=== PATIENT | male | born 1950 | race Caucasian/White ===

== ENCOUNTER 2018-03-20 13:04 | Emergency (ER) | payer OTHER ==
--- NOTE | 2018-03-20 13:44 | EDPHY ---
H & P <Ben Cháevz - Last Filed: 03/20/18 14:02> Stated Complaint: ? ankle swelling ? septic ankle - Personal History Current Tetanus/Diphtheria Vaccine: Yes Current Tetanus Diphtheria and Acellular Pertussis (TDAP): Yes Tetanus Vaccine Date: within last 10 years - Medical/Surgical History Hx Asthma: Yes Hx Chronic Respiratory Disease: No Hx Diabetes: Yes Hx Cardiac Disease: No Hx Renal Disease: No Hx Cirrhosis: No Hx Alcoholism: No Hx HIV/AIDS: No Hx Splenectomy or Spleen Trauma: No Other PMH: Asthma, DM, RA, right hip replcement (01/02), left hip replacement ( 25 yrs ago) - Social History Smoking Status: Current some day smoker <Joelle Klein - Last Filed: 03/20/18 15:48> Time Seen by Provider: 03/20/18 13:25 HPI/ROS: CHIEF COMPLAINT: Erythema to the right medial ankle "I might have an infected joint" HISTORY OF PRESENT ILLNESS: 67-year-old male history of diabetes, history of rheumatoid arthritis and psoriasis, on immunosuppressant medication, complaining of 1 week of progressive erythema to the right medial ankle. Today he went to urgent care, had a negative x-ray and was referred to the ER for evaluation of possible septic arthritis of the ankle . Atraumatic. Able to bear weight. No flu-like symptoms No fever no chills no nausea or vomiting. PRIMARY CARE PROVIDER: REVIEW OF SYSTEMS: 10 systems reviewed and negative with the exception of the elements mentioned in the history of present illness PAST MEDICAL & SURGICAL HISTORY: Psoriasis. Diabetes. Rheumatoid arthritis. Immune suppressant medication. SOCIAL HISTORY: Nonsmoker PHYSICAL EXAM (Prior to examination, patient consented to physical exam, hands were washed and my usual and customary physical exam procedures followed) 1) GENERAL: Well-developed, well-nourished, alert and oriented. Appears to be in no acute distress. Observed ambulating stable steady gait without assistance. 2) HEAD: Normocephalic, atraumatic 3) HEENT: Pupils equal, round, reactive to light bilaterally. Sclera anicteric. 4) NECK: Full range of motion, no meningeal signs. 5) LUNGS: Clear auscultation bilaterally, no wheezes, no rhonchi, no retractions. 6) HEART: Regular rate and rhythm, no murmur, no heave, no gallop. 7) ABDOMEN: No guarding, no rebound, no focal tenderness, negative McBurney's, negative Gatica's, negative Rovsing's, negative peritoneal sign, 8) MUSCULOSKELETAL: Right lower extremity: Psoriatic lesions noted. Right medial ankle erythema, induration, increased temperature. No lymphangitic streaking. No crepitus No pain with axial loading or range of motion of the ankle joint. Negative Homans no palpable cord. DP PT pulses present and brisk. Negative Homans no palpable cord. 9) BACK: No CVA tenderness, no midline vertebral tenderness, no fluctuance, no step-off, no obvious trauma, no visual or palpable abnormality. 10) SKIN: No rash, no petechiae. 11) Psychiatric: Patient is oriented X 3, there is no agitation. DIFFERENTIAL DIAGNOSIS: In no particular order include but limited to cellulitis, septic arthritis, crystalline arthritis, DVT (Joelle Klein) Constitutional: Initial Vital Signs Temperature (C) 36.6 C 03/20/18 13:15 Heart Rate 99 03/20/18 13:15 Respiratory Rate 16 03/20/18 13:15 Blood Pressure 147/91 H 03/20/18 13:15 O2 Sat (%) 96 03/20/18 13:15 O2 Delivery Mode Room Air Allergies/Adverse Reactions: No Known Allergies Allergy (Unverified 08/06/14 10:19) Home Medications: Medication Instructions Recorded Aspirin [Silvia Chewable] 81 mg PO DAILY 08/06/14 Atorvastatin Calcium [Lipitor 10 08/06/14 mg (RX)] Glipizide [Glipizide ER] 2.5 mg PO 08/06/14 Leflunomide [Arava 10 mg (RX)] 10 mg PO [id number] 08/06/14 SITAGLIPTIN PHOSPHATE [Januvia 50 50 mg PO DAILY 08/06/14 mg] metFORMIN HCL [Glucophage 1000 mg] 1,000 mg PO BIDMEAL 08/06/14 SIMPONI 03/20/18 Medical Decision Making <Ben Chávez - Last Filed: 03/20/18 14:02> <Joelle Klein - Last Filed: 03/20/18 15:48> - Diagnostics Imaging Results: Imaging Impressions Ankle X-Ray 03/20/18 11:33 Impression: No acute osseous findings. ED Course/Re-evaluation: I reviewed the patient's pre-hospital x-ray which is negative interpreted by staff Radiology. Patient was also seen and examined Dr. Ben Chávez in the ER. Patient is immunosuppressed secondary to medication for psoriasis, rheumatoid arthritis as well as history of diabetes. He has erythema to his right medial ankle which we think less than likely represents septic arthritis the presence of full pain-free range of motion and weight-bearing of the ankle. I have observed him weight-bearing with normal gait. However he is immune suppressed with erythema to the ankle. I have recommended hospital admission for IV antibiotics. Due to prior commitments the patient is adamant that he cannot be admitted to the hospital however after lengthy discussion with the patient he does ultimately agree to dose of IV vancomycin and return to the ER in 12 hrx for re administration of IV antibiotics and re-evaluation. I believe him to have decision-making capacity. (Joelle Klein) Other Provider: I evaluated this patient independently at the request of TRA Sanderson. This patient is an immunocompromised 67 y/o male with history of rheumatoid arthritis, psoriasis. He complains of increasing erythema and swelling to his right ankle over the past 1.5 weeks. This occurred shortly after he felt a "pop " in his ankle. Today, pain is reduced significantly, but the swelling and erythema has continued. He was referred here to the emergency department as his provider had concern for possible septic joint. He is able to walk on the ankle and has appropriate range of motion. No pain, tenderness, or swelling in his calf. He is not febrile. He does not feel systemically ill. On exam, the ankle is erythematous and swollen, consistent with a cellulitis. There are psoriatic skin changes to both lower extremities. Skin sloughing from feet consistent with psoriasis vs. athlete's foot. 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 Discussed IV antibiotics outpatient vs. admission. The patient prefers to avoid admission if possible. The patient is not a candidate for setting up a simple outpatient infusion schedule, he will need repeat evaluation by a physician or PA for close monitoring due to his immunocompromised status. We agreed to proceed with outpatient medication administration: he will return to the emergency department Q12 hours for repeat antibiotics and repeat evaluation by a physician. Plan to administer IV Vancomycin. I stressed the importance of returning on schedule for followup treatment and that he must be seen by a provider, especially given his immunocompromised status. He understands and is comfortable with this plan. (Ben Chávez) - Data Points Laboratory Results: Laboratory Results 03/20/18 14:06 03/20/18 14:06 03/20/18 03/20/18 03/20/18 14:40 14:06 14:06 WBC 8.21 10^3/uL 10^3/uL (3.80-9.50) RBC 4.83 10^6/uL 10^6/uL (4.40-6.38) Hgb 15.2 g/dL g/dL (13.7-17.5) POC Hgb 16.3 gm/dL gm/dL (13.7-17.5) Hct 47.0 % % (40.0-51.0) POC Hct 48 % % (40-51) MCV 97.3 fL fL (81.5-99.8) MCH 31.5 pg pg (27.9-34.1) MCHC 32.3 g/dL L g/dL (32.4-36.7) RDW 13.1 % % (11.5-15.2) Plt Count 256 10^3/uL 10^3/uL (150-400) MPV 9.7 fL fL (8.7-11.7) Neut % (Auto) 60.0 % % (39.3-74.2) Lymph % (Auto) 24.5 % % (15.0-45.0) Ford % (Auto) 11.0 % % (4.5-13.0) Eos % (Auto) 2.7 % % (0.6-7.6) Baso % (Auto) 1.1 % % (0.3-1.7) Nucleat RBC Rel Count 0.0 % % (0.0-0.2) Absolute Neuts (auto) 4.93 10^3/uL 10^3/uL (1.70-6.50) Absolute Lymphs (auto) 2.01 10^3/uL 10^3/uL (1.00-3.00) Absolute Monos (auto) 0.90 10^3/uL H 10^3/uL (0.30-0.80) Absolute Eos (auto) 0.22 10^3/uL 10^3/uL (0.03-0.40) Absolute Basos (auto) 0.09 10^3/uL 10^3/uL (0.02-0.10) Absolute Nucleated RBC 0.00 10^3/uL 10^3/uL (0-0.01) Immature Gran % 0.7 % % (0.0-1.1) Immature Gran # 0.06 10^3/uL 10^3/uL (0.00-0.10) POC Sodium 141 mEq/L mEq/L (135-145) Sodium 136 mEq/L mEq/L (135-145) POC Potassium 4.4 mEq/L mEq/L (3.3-5.0) Potassium 4.5 mEq/L mEq/L (3.5-5.2) POC Chloride 100 mEq/L mEq/L (97-110) Chloride 101 mEq/L mEq/L (97-110) Carbon Dioxide 26 mEq/l mEq/l (22-31) POC Total CO2 Pending Anion Gap 9 mEq/L mEq/L (6-14) POC BUN 26 mg/dL H mg/dL (7-23) BUN 27 mg/dL H mg/dL (7-23) Creatinine 0.9 mg/dL mg/dL (0.7-1.3) POC Creatinine 1.0 mg/dL mg/dL (0.7-1.3) Estimated GFR > 60 Glucose 163 mg/dL H mg/dL (70-100) POC Glucose 169 mg/dL H mg/dL (70-100) Calcium 9.6 mg/dL mg/dL (8.5-10.4) Medications Given: Discontinued Medications Vancomycin/Sodium Chloride (Vancomycin 1 Gm (Premix)) 250 mls @ 250 mls/hr IV EDNOW ONE PRN Reason: Protocol Stop: 03/20/18 14:55 Last Admin: 03/20/18 14:12 Dose: 250 mls Sodium Chloride (Ns) 1,000 mls @ 0 mls/hr IV ONCE ONE PRN Reason: Wide Open Stop: 03/20/18 14:47 Last Admin: 03/20/18 14:50 Dose: 1,000 mls Point of Care Test Results: Chemistry 03/20/18 14:40 POC Sodium 141 mEq/L mEq/L (135-145) POC Potassium 4.4 mEq/L mEq/L (3.3-5.0) POC Chloride 100 mEq/L mEq/L (97-110) POC BUN 26 mg/dL H mg/dL (7-23) POC Creatinine 1.0 mg/dL mg/dL (0.7-1.3) POC Glucose 169 mg/dL H mg/dL (70-100) ISTAT H&H 03/20/18 14:40 POC Hgb 16.3 gm/dL gm/dL (13.7-17.5) POC Hct 48 % % (40-51) Departure <Ben Chávez - Last Filed: 03/20/18 14:02> <Joelle Klein - Last Filed: 03/20/18 15:48> - Departure Disposition: Home, Routine, Self-Care Clinical Impression: Cellulitis of right ankle, Immunosuppression Condition: Good Instructions: Cellulitis (ED) Additional Instructions: Return to the ER if you develop redness, swelling, discharge, warmth to the wound, red streaks going up your leg, or any other symptoms that concern you. Referrals: Return, to the ER in 12 hr for recheck [Other] - 03/21/18 3:00 am Report Scribed for: Ben Chávez Report Scribed by: Ryann Echavarria Date of Report: 03/20/18 Time of Report: 14:02 <Ben Chávez - Last Filed: 03/20/18 14:02>
[2018-03-20] MEDS ORDERED: VANCOMYCIN HCL/NORMAL SALINE 250 ML IV ONE (13:56)
[2018-03-20 14:29] LABS: PLATELET COUNT 256 10^3/uL (150-400)
[2018-03-20] MEDS ORDERED: NS 1,000 ML IV ONE (14:46)
[2018-03-20 15:38] VITALS: BP 136/78
== END 2018-03-20 15:39 | disposition home or self-care (01) ==
LOC: EDSTATUS 13:04
DX: L03.115 Cellulitis of right lower limb (principal); D89.9 Disorder involving the immune mechanism, unspecified
CPT/HCPCS: 73610; 96365; 99284; J3370; 82435-PO; 82565-PO; 82947-PO; 84132-PO; 84295-PO; 84520-PO; 85014-ER

== ENCOUNTER 2018-03-21 02:50 | Observation (INO) | payer OTHER ==
--- NOTE | 2018-03-21 03:59 | EDPHY ---
H & P Stated Complaint: told to come to ED for a Q12 IV infusion per Jeremias Chávez ankle infection Time Seen by Provider: 03/21/18 03:59 HPI/ROS: HPI CHIEF COMPLAINT: "second dose of Antibiotics" HISTORY OF PRESENT ILLNESS: This is a 67-year-old male who was seen earlier yesterday for erythema and swelling to the medial aspect of the right ankle concerning for infection. At that time declined hospital admission, however it was highly recommended the patient be admitted to the hospital, subsequently was given dose of IV vancomycin and returns for a 12 hr recheck and another dose of antibiotics. He arrives back to the emergency room late this evening for his 2nd dose of vancomycin and evaluation and recheck of his ankle. On re-examination is right ankle is erythematous, very warm and tender. He does have full range of motion, patient does report that the redness is worse. But has pain and swelling is not worse. On exam is exquisitely warm and red. He is immunocompromised due to rheumatoid arthritis and on medications. I again had a long discussion with the patient recommend hospital admission for antibiotics. After extensive long discussion with him going over the risk versus benefit of being hospitalize he has finally agreed to be hospitalized. A 2nd dose of IV Vanco will be given to him. Will repeat his blood work. Obtain blood cultures. Admit to the hospitalist service. Past Medical History: Significant past medical history for diabetes, rheumatoid arthritis on immunosuppressants, asthma Past Surgical History: Hip replacements Social History: denies drugs alcohol tobacco. Family History: Noncontributory ROS REVIEW OF SYSTEMS: 10 Systems were reviewed and negative with the exception of the elements mentioned in the history of present illness. Exam Constitutional triage nursing summary reviewed, vital signs reviewed, awake/ alert. Eyes normal conjunctivae and sclera, EOMI, PERRLA. HENT normal inspection, atraumatic, moist mucus membranes, no epistaxis, neck supple/ no meningismus, no raccoon eyes. Respiratory clear to auscultation bilaterally, normal breath sounds, no respiratory distress, no wheezing. Cardiovascular rate normal, regular rhythm, no murmur, no edema, distal pulses normal. Gastrointestinal soft, non-tender, no rebound, no guarding, normal bowel sounds, no distension, no pulsatile mass. Genitourinary no CVA tenderness. Musculoskeletal right lower extremity: Good distal pulse, good cap refill, psoriasis on the lateral aspect of the right foot. Psoriasis on the bottom of the foot with skin scaling. However to the medial aspect of the right ankle over the right medial malleolus extensive erythema and warmth. Some mild edema. Otherwise neurovascular intact with full range of motion good cap refill , no crepitus with movement. No crepitus when I examine his leg. There is some streaking up his right medial leg. no midline vertebral tenderness, full range of motion, no calf swelling, no tenderness of extremities, no meningismus, good pulses, neurovascularly intact. Skin pink, warm, & dry, no rash, skin atraumatic. Neurologic awake, alert and oriented x 3, AAOx3, moves all 4 extremities equally, motor intact, sensory intact, CN II-XII intact, normal cerebellar, normal vision, normal speech. Psychiatric normal mood/affect. Heme/Lymph/Immune no lymphadenopathy. Differential Diagnosis: Includes but is not limited to in a particular order right lower extremity cellulitis, necrotizing fasciitis, septic joint Medical Decision Making: Plan for this patient he has immunocompromise on his RA medications, he has a pretty impressive right lower extremity cellulitis. Plan will be for 2nd dose of vancomycin. Additionally plan for admission the hospital after long discussion with the patient he accepts and agrees. Will obtain blood cultures and basic blood work again. Inflammatory markers. IV Vanco as been ordered. I have consult the hospitalist service Dr. Mead Agrees to admit. Patient also agrees for admission. Re-evaluation: Source: Patient - Personal History Current Tetanus/Diphtheria Vaccine: Yes Current Tetanus Diphtheria and Acellular Pertussis (TDAP): Yes Tetanus Vaccine Date: within last 10 years - Medical/Surgical History Hx Asthma: Yes Hx Chronic Respiratory Disease: No Hx Diabetes: Yes Hx Cardiac Disease: No Hx Renal Disease: No Hx Cirrhosis: No Hx Alcoholism: No Hx HIV/AIDS: No Hx Splenectomy or Spleen Trauma: No Other PMH: Asthma, DM, RA, right hip replcement (01/02), left hip replacement ( 25 yrs ago) - Social History Smoking Status: Current some day smoker Constitutional: Initial Vital Signs Temperature (C) 36.8 C 03/21/18 02:52 Heart Rate 99 03/21/18 02:52 Respiratory Rate 20 03/21/18 02:52 Blood Pressure 153/96 H 03/21/18 02:52 O2 Sat (%) 94 03/21/18 02:52 O2 Delivery Mode Room Air Allergies/Adverse Reactions: No Known Allergies Allergy (Verified 03/21/18 08:33) Home Medications: Medication Instructions Recorded Atorvastatin Calcium [Lipitor 10 10 mg PO DAILY 08/06/14 mg (RX)] Golimumab [SIMPONI] 50 mg SQ Q30D 03/20/18 Aspirin [Aspirin 81mg (*)] 81 mg PO DAILY 03/21/18 Finasteride [Proscar 5 MG (*)] 5 mg PO DAILY 03/21/18 Fluocinonide 0.05% [Lidex 0.05% 1 luis TP BID 03/21/18 Ointment] Leflunomide [Arava 20 mg (*)] 20 mg PO Q2D 03/21/18 Multivitamins [Multivitamin (*)] 1 each PO DAILY 03/21/18 Stowell-3 Fatty Acids [Fish Oil 1000 1,000 mg PO DAILY 03/21/18 mg (*)] Tamsulosin HCl [Flomax 0.4 MG (*)] 0.4 mg PO DAILY 03/21/18 glipiZIDE [Glipizide] 5 mg PO BIDMEAL 03/21/18 metFORMIN HCL [Glucophage 500 mg 1,000 mg PO DAILY 03/21/18 (*)] metFORMIN HCL [Glucophage 500 mg 500 mg PO DAILY18 03/21/18 (*)] sitaGLIPtin PHOSPHATE [Januvia 100 100 mg PO DAILY 03/21/18 MG (*)] Medical Decision Making - Data Points Medications Given: Atorvastatin Calcium (Lipitor) 10 mg PO DAILY [facility] Stop: 09/17/18 08:59 Last Admin: 03/21/18 10:17 Dose: 10 mg Enoxaparin Sodium (Lovenox) 40 mg SC DAILY [facility] Stop: 09/17/18 08:59 Last Admin: 03/21/18 09:44 Dose: 40 mg Finasteride (Proscar) 5 mg PO DAILY [facility] Stop: 09/17/18 08:59 Last Admin: 03/21/18 10:17 Dose: 5 mg Fluocinonide (Lidex 0.05% Ointment) 1 luis TP BID [facility] Stop: 09/17/18 08:59 Last Admin: 03/21/18 19:05 Dose: 1 luis Glipizide (Glucotrol) 5 mg PO BIDMEAL [facility] Stop: 09/17/18 08:44 Last Admin: 03/21/18 19:06 Dose: 5 mg Vancomycin HCl 1 gm/ Sodium (Chloride) 250 mls @ 250 mls/hr IV Q12H [facility] Stop: 04/20/18 17:59 Last Admin: 03/21/18 17:54 Dose: 250 mls Leflunomide (Arava) 20 mg PO Q2D [facility] Stop: 09/17/18 08:59 Last Admin: 03/21/18 10:17 Dose: 20 mg Metformin HCl (Glucophage) 500 mg PO DAILY18 [facility] Stop: 09/17/18 17:59 Last Admin: 03/21/18 17:54 Dose: 500 mg Sitagliptin Phosphate (Januvia) 100 mg PO DAILY [facility] Stop: 09/17/18 08:59 Last Admin: 03/21/18 10:17 Dose: 100 mg Tamsulosin HCl (Flomax) 0.4 mg PO DAILY [facility] Stop: 09/17/18 08:59 Last Admin: 03/21/18 10:17 Dose: 0.4 mg Discontinued Medications Sodium Chloride (Ns) 1,000 mls @ 0 mls/hr IV EDNOW ONE; Wide Open PRN Reason: Protocol Stop: 03/21/18 04:49 Last Admin: 03/21/18 05:17 Dose: 1,000 mls Vancomycin/Sodium Chloride (Vancomycin 1 Gm (Premix)) 250 mls @ 250 mls/hr IV EDNOW ONE PRN Reason: Protocol Stop: 03/21/18 05:48 Last Admin: 03/21/18 05:16 Dose: 250 mls Sodium Chloride (Ns) 1,000 mls @ 0 mls/hr IV ONCE ONE PRN Reason: Wide Open Stop: 03/21/18 06:42 Last Admin: 03/21/18 06:43 Dose: 1,000 mls Miscellaneous Medication (Golimumab [Simponi]) 50 mg SQ Q30D [facility] Stop: 09/17/18 08:44 Last Admin: 03/21/18 09:47 Dose: Not Given Departure - Departure Disposition: [facility] Inpatient Acute Clinical Impression: Cellulitis Qualifiers: Site of cellulitis: extremity Site of cellulitis of extremity: lower extremity Laterality: right Qualified Code(s): L03.115 - Cellulitis of right lower limb Condition: Good
[2018-03-21] MEDS ORDERED: VANCOMYCIN 1 GM/NS 250 ML BAG IV ONE (04:34)
[2018-03-21] MEDS ORDERED: NS 1,000 ML IV ONE ×2 (04:48→06:41)
[2018-03-21] MEDS ORDERED: VANCOMYCIN HCL/NORMAL SALINE 250 ML IV ONE (04:49)
[2018-03-21] MEDS ORDERED: ONDANSETRON DISINTEGRATING 4 MG TAB PO PRN (04:53)
[2018-03-21] MEDS ORDERED: ONDANSETRON 4 MG/2 ML VIAL IVP PRN (04:53)
[2018-03-21] MEDS ORDERED: ACETAMINOPHEN 325 MG TAB PO PRN (04:53)
[2018-03-21 05:09] LABS: PLATELET COUNT 261 10^3/uL (150-400)
--- NOTE | 2018-03-21 05:12 | PDGENHP ---
History and Physical - Chief Complaint Foot redness - History of Present Illness 67 yo M w/ RA, psoriasis, and DM presents with R foot redness. He states this started about 10 days ago and has been progressing. He has a 30 year hx of RA and is on a biologic for immunosuppression. He presented to the ED yesterday, was given a dose of Vancomycin, and discharged home after refusing admission. He presents again this morning with minimal improvement in the redness of his medial R foot. he denies fevers and chills. His laboratory work-up is pending this morning but was reassuring yesterday. His vital signs are currently WNL. Case discussed with ED physician Dr. Hurley; records reviewed and summarized above. History Information - Allergies/Home Medication List Allergies/Adverse Reactions: No Known Allergies Allergy (Unverified 03/21/18 02:51) Home Medications: Aspirin [Silvia Chewable] 81 mg PO DAILY 08/06/14 [Last Taken Unknown] Atorvastatin Calcium [Lipitor 10 mg (RX)] 08/06/14 [Last Taken Unknown] Glipizide [Glipizide ER] 2.5 mg PO 08/06/14 [Last Taken Unknown] Leflunomide [Arava 10 mg (RX)] 10 mg PO [id number] 08/06/14 [Last Taken Unknown] SITAGLIPTIN PHOSPHATE [Januvia 50 mg] 50 mg PO DAILY 08/06/14 [Last Taken Unknown] metFORMIN HCL [Glucophage 1000 mg] 1,000 mg PO BIDMEAL 08/06/14 [Last Taken Unknown] SIMPONI 03/20/18 [Last Taken Unknown] I have personally reviewed and updated: family history, medical history - Past Medical History diabetes type 2 Additional medical history: RA. Psoriasis - Surgical History Additional surgical history: Bilateral THAs - Family History Positive for: diabetes type II, CAD - Social History Smoking Status: Current some day smoker Review of Systems Review of Systems: ROS: 10pt was reviewed & negative except for what was stated in HPI & below Physical Exam Physical Exam: Temp Pulse Resp BP Pulse Ox 36.8 C 99 20 153/96 H 94 03/21/18 02:52 03/21/18 02:52 03/21/18 02:52 03/21/18 02:52 03/21/18 02:52 Constitutional: no apparent distress, not in pain Eyes: PERRL, EOMI Ears, Nose, Mouth, Throat: moist mucous membranes, no oral mucosal ulcers Cardiovascular: regular rate and rhythym, no murmur, rub, or gallop Respiratory: no respiratory distress, clear to auscultation Gastrointestinal: normoactive bowel sounds, soft, non-tender abdomen Skin: warm, no fluctuance, erythema (Medial R foot) Neurologic: AAOx3, CN II-XII Intact Psychiatric: interacting appropriately, not anxious Lab Data & Imaging Review 03/21/18 04:55 03/21/18 04:55 VBG Lactic Acid 2.3 mmol/L (0.7-2.1) H 03/21/18 04:55 Assessment & Plan Assessment: 67 yo M w/ DM, RA, and psoriasis presents with cellulitis. Plan: 1. R foot cellulitis - Presents for about 10 days; progressive but with minimal systemic symptoms at this time. He is immunosuppressed for treatment of RA and psoriasis. - Will continue Vancomycin IV noting he has already received 2 doses in the ED over the last 24 hours 2. RA - Diagnosed about 30 years ago. He has had multiple hip surgeries as a result. 3. Psoriasis - Recent diagnosis, may be contributing to breakdown of skin barrier. 4. NIDDM - On oral agents as an outpatient. - Continue oral agents pending reconciliation Diet - Regular Code - Full Ppx - LMWH Dispo - Admit under observation status
[2018-03-21] MEDS ORDERED: GOLIMUMAB 50 MG SQ SCH ×2 (08:45→14:00)
[2018-03-21] MEDS ORDERED: LEFLUNOMIDE 20 MG TAB PO SCH (09:00)
[2018-03-21] MEDS: ENOXAPARIN 40 MG/0.4 ML SYR SC SCH (09:44)
[2018-03-21] MEDS: glipiZIDE 5 MG TAB PO SCH ×2 (09:44→19:06)
[2018-03-21] MEDS: FLUOCINONIDE 0.05% 15 GM OINTMENT TP SCH ×2 (09:48→19:05)
[2018-03-21] MEDS: ATORVASTATIN CALCIUM 10 MG TAB PO SCH (10:17)
[2018-03-21] MEDS: FINASTERIDE 5 MG TAB PO SCH (10:17)
[2018-03-21] MEDS: TAMSULOSIN HCL 0.4 MG CAP PO SCH (10:17)
--- NOTE | 2018-03-21 16:01 | HOSPPROG ---
Hospitalist Progress Note Assessment/Plan: 67 yo M w/ DM, RA, and psoriasis presents with cellulitis. First encounter, chart reviewed. * R foot, ankle area cellulitis -Presents for about 10 days - on Vancomycin - immunocompromised - spoke w ID and will see him for further recommendations * RA - Diagnosed about 30 years ago. -He has had multiple hip surgeries as a result. * Psoriasis -on both ankles and feet -has been on biologics for this -Humira has not helped * NIDDM - On oral agents as an outpatient. - resumed oral agents *plan: spoke w ID they will see him, resumed his home medications. >30 minutes f /u with Yemi. Subjective: Yemi said the swelling is much improved in his r lower ankle area. Objective: Vital Signs Temp Pulse Resp BP Pulse Ox 36.4 C 74 16 144/84 H 95 03/21/18 13:37 03/21/18 13:37 03/21/18 13:37 03/21/18 13:37 03/21/18 13:37 Laboratory Results 03/21/18 04:55 03/21/18 04:55 03/20/18 03/21/18 03/22/18 05:59 05:59 05:59 Intake Total 1999 Balance 1999 - Physical Exam Constitutional: no apparent distress, appears nourished, not in pain Eyes: PERRL Ears, Nose, Mouth, Throat: hearing normal Respiratory: no respiratory distress Skin: warm, other (singificant psoriasis on both feet, ankles. right ankle area with warmth redness, dry, scaley.) Musculoskeletal: full muscle strength Neurologic: AAOx3 Psychiatric: interacting appropriately, not anxious ICD10 Worksheet Patient Problems: Problems Problem Status Onset Cellulitis Acute
[2018-03-21] MEDS: VANCOMYCIN 1 GM in NS 250 ML IV SCH (17:54)
[2018-03-21] MEDS ORDERED: metFORMIN HCL 500 MG TAB PO SCH (18:00)
--- NOTE | 2018-03-21 19:31 | PDCONSULT ---
Shake Splitter Note: Infectious Diseases Consult Note Impression: 67-year-old man with right ankle cellulitis improving with vancomycin. Absence of abscess or fluctuance makes Staph aureus less likely than Streptococcal organisms. Plan to change to amoxicillin alone and follow in outpatient setting when ready for discharge. No suggestion of opportunistic pathogen while on TNF-alpha blockade. 1. Right medial ankle cellulitis; Improved 2. Psoriasis 3. Rheumatoid arthritis 4. Immunocompromised patient due to RA treatment with golimumab (Simponi) a TNF- alpha inhibitor Plan: 1. Continue vancomycin with goal trough 10-15 2. Can discharge with amoxicillin 500mg PO TID to finish on 04/03/18 3. Will arrange ID follow up for ~day 10 of therapy Elias Lang MD Infectious Diseases Chief Complaint: Right ankle pain and erythema Requesting Provider: Dr. Mead Reason for Referral: Consultation was requested by Dr. Mead regarding antimicrobial management. HPI: 67-year-old man who presented to hospital on the day of admission for a second dose of vancomycin in the emergency department as was admitted due to cellulitis. He notes pain initially on the medial aspect of his right ankle approximately 10-14 days prior to admission with redness slowly developing over the subsequent days. He did not have fever, chills, or night sweats during this progression. No linear streaking of redness up the leg. He presented to the ED the day prior to admission and was given a dose of vancomycin and instructed to return for a second dose in approximately 12 hours. Upon return, he was admitted to ensure the infected area resolved. He feels the erythema has regressed some since starting vancomycin. He notes the diagnosis of psoriasis approximately three months prior to admission with numerous lesions on his legs and arms. He changed from Humira to Simponi after the development of psoriasis but has not noted improvement in the skin lesions since the change. He has been maintained on biologic therapy for RA for many years without infectious complications. No recent travel to locations where he would walk barefoot outside. Occasionally ambulates in his home without slippers or socks on but no clear cuts to his feet. 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 No known Coccidioides or Tuberculosis exposures. Past Medical History: Rheumatoid arthritis; Psoriasis (Dx 12/2017) Past Surgical History: Bilateral hip replacements Social History: No drug use Family History: No recurrent infections Allergies: NKDA Medications: Reviewed in medical record and confirmed with patient. ROS: 10 organ systems reviewed; pertinent positives and negatives listed in the HPI, all other organ systems negative. Physical Exam: VS: Reviewed Gen: No acute distress; Breathing comfortably without exogenous oxygen; Able to speak in complete sentences Eyes: No conjunctival injection; No scleral icterus HENT: No gross deformities Neck: No limitation in range of motion Skin: A full skin exam including bilateral upper extremities, bilateral lower extremities to the knees, face, neck performed; Numerous erythematous, plaques on lower extremities and arms MSK: Joints without erythema or edema; No gross limitation in range of motion Ext: No clubbing or cyanosis Neuro: Awake and alert Psych: Normal mood and affect Labs/Imaging: All microbiology testing (culture and non-culture) reviewed in the medical record. Personally reviewed and interpreted the images of the following radiographs: ankle x-ray Medications Generic Name Dose Route Start Last Admin Trade Name Freq PRN Reason Stop Dose Admin Vancomycin HCl 1 gm/ Sodium 250 mls @ 250 mls/hr 03/21/18 18:00 03/21/18 17: 54 Chloride IV 04/20/18 17:59 250 mls Q12H [facility] Microbiology Laboratory Tests 03/21/18 03/21/18 04:55 04:55 WBC 8.51 Absolute Neuts (auto) 4.51 Absolute Eos (auto) 0.91 H Creatinine 1.0 Antimicrobials: Vancomycin Ongoing monitoring for antimicrobial toxicity with: CBC, BMP. Xrxj-lz-[id number] time with patient: 37 minutes with >50% of xynq-rt-ulpy time spent in counseling, patient education, and coordinating care. Counseling provided included the microbiology of cellulitis, expected time to resolution, natural history without treatment, and side effects of treatment.
[2018-03-22] MEDS: VANCOMYCIN 1 GM in NS 250 ML IV SCH (05:45)
[2018-03-22] MEDS: TAMSULOSIN HCL 0.4 MG CAP PO SCH (07:52)
[2018-03-22] MEDS: ENOXAPARIN 40 MG/0.4 ML SYR SC SCH (07:53)
[2018-03-22] MEDS: FINASTERIDE 5 MG TAB PO SCH (07:53)
[2018-03-22] MEDS: ATORVASTATIN CALCIUM 10 MG TAB PO SCH (07:53)
[2018-03-22] MEDS: glipiZIDE 5 MG TAB PO SCH (07:53)
[2018-03-22 08:08] VITALS: BP 149/87
--- NOTE | 2018-03-22 08:42 | PCMIDPN ---
Assessment/Plan: Assessment: 67-year-old man with right ankle cellulitis, improving since admission with vancomycin. No objective evidence for MRSA involvement, streptococcal organisms most likely in this setting. Can discharge on oral amoxicillin with ID follow-up. 1. Right lower extremity cellulitis, improved 2. History rheumatoid arthritis ongoing therapy with TNF alpha inhibitor 3. Psoriasis with numerous lower extremity plaques, active disease Plan: 1. Stop vancomycin 2. Discharge with amoxicillin 500 mg 3 times daily to continue through April 04 3. Follow-up with Infectious Disease is being arranged for April 01 Elias Lang MD Infectious Diseases 03/22/18 08:43 Subjective: No fever or chills. Denies diarrhea, nausea. Appetite normal. Ambulating with minimal tenderness of the right ankle. No new concerns today. Objective: Vital Signs Temp Pulse Resp BP Pulse Ox 36.6 C 91 18 149/87 H 93 03/22/18 08:01 03/22/18 08:01 03/22/18 08:01 03/22/18 08:01 03/22/18 08:01 Laboratory Results 03/21/18 04:55 03/21/18 04:55 03/21/18 03/22/18 03/23/18 05:59 05:59 05:59 Intake Total 1999 665 Balance 1999 665 ESR 9 MM/HR (0-20) 03/21/18 04:55 C-Reactive Protein 10.1 mg/L (<10.0) H 03/21/18 04:55 - Physical Exam General Appearance: alert, no apparent distress, non-toxic EENT: No scleral icterus Extremities: No swelling (Right ankle with erythema, not extending to the drawn line from admission. No change in psoriasis plaques) Skin: rash (The psoriasis plaques) Neuro/Psych: alert, normal mood/affect, oriented x 3 ICD10 Worksheet Patient Problems: Problems Problem Status Onset Cellulitis Acute
--- NOTE | 2018-03-22 08:43 | HOSPPROG ---
Hospitalist Progress Note Assessment/Plan: 67 yo M w/ DM, RA, and psoriasis presents with cellulitis. * R foot, ankle area cellulitis -Presents for about 10 days - on Vancomycin - immunocompromised -dc on amoxicillin * RA - Diagnosed about 30 years ago. -He has had multiple hip surgeries as a result. * Psoriasis -on both ankles and feet -has been on biologics for this -Humira has not helped * NIDDM - On oral agents as an outpatient. - resumed oral agents *plan: to dc home w close f/u w Dr Lewis, appreciate his involvement Subjective: Yemi is feeling fine, no c/o pain, says the swelling and pain in his r ankle is improved. Objective: Vital Signs Temp Pulse Resp BP Pulse Ox 36.6 C 91 18 149/87 H 93 03/22/18 08:01 03/22/18 08:01 03/22/18 08:01 03/22/18 08:01 03/22/18 08:01 Laboratory Results 03/21/18 04:55 03/21/18 04:55 03/21/18 03/22/18 03/23/18 05:59 05:59 05:59 Intake Total 1999 665 Balance 1999 665 - Physical Exam Constitutional: no apparent distress, appears nourished, not in pain Eyes: PERRL Ears, Nose, Mouth, Throat: hearing normal Respiratory: no respiratory distress Skin: warm, other (right ankle area still red, swelling has improved, non tender , surrounding skin dry) Musculoskeletal: full muscle strength Neurologic: AAOx3 Psychiatric: interacting appropriately, not anxious ICD10 Worksheet Patient Problems: Problems Problem Status Onset Cellulitis Acute
--- NOTE | 2018-03-22 08:47 | PDIAF ---
- Diagnosis Diagnosis: Right medial ankle cellulitis Code Status: Full Code - Medication Management Quality Assurance/R&D Lab Technician Antibiotics: amoxicillin 500 mg 3 times daily Quality Assurance/R&D Lab Technician Antibiotic Stop Date: 04/04/18 Discharge Medications: electronically signed and located in the Home Medication List. PICC Care - Routine: N/A - Follow Up Care Current Providers and Referrals: Eileen Angulo MD [Primary Care Provider] - As per Instructions Elias Lang MD [Medical Doctor] -
[2018-03-22] MEDS ORDERED: metFORMIN HCL 500 MG TAB PO SCH (09:00)
[2018-03-22] MEDS ORDERED: ASPIRIN 81 MG CHEWABLE TAB PO SCH (09:00)
--- NOTE | 2018-03-22 09:09 | PDIAF ---
- Diagnosis Diagnosis: Right medial ankle cellulitis Code Status: Full Code - Medication Management Crank Hand Antibiotics: amoxicillin 500 mg 3 times daily Crank Hand Antibiotic Stop Date: 04/04/18 Discharge Medications: electronically signed and located in the Home Medication List. PICC Care - Routine: N/A - Follow Up Care Current Providers and Referrals: Eileen Angulo MD [Primary Care Provider] - As per Instructions Elias Lang MD [Medical Doctor] - 03/29/18 8:45 am
--- NOTE | 2018-03-22 10:42 | ASMTLACE ---
LACE Length of stay for Answers: 1 day current admission Acuity / Level of Answers: No Care: Did the patient have an inpatient admission? Comorbidities - select Answers: Chronic pulmonary disease all that apply # of Emergency department Answers: 1-2 visits in the last 6 months Score: 4 Date Signed: 03/22/2018 10:41 AM Electronically Signed By:Lakia Nair RN
--- NOTE | 2018-03-22 10:44 | ASMTCMCOM ---
CM Note CM Note Notes: Pt dc'd on oral amoxicillin w/support of . DC Plan: Independent Date Signed: 03/22/2018 10:44 AM Electronically Signed By:Lakia Niar RN
[2018-03-22] MEDS: FLUOCINONIDE 0.05% 15 GM OINTMENT TP SCH (11:09)
--- NOTE | 2018-03-22 11:15 | GDS ---
[f rep st] DISCHARGE SUMMARY DISCHARGE DIAGNOSIS: 1. Right foot ankle area cellulitis in an immunocompromised patient. 2. Rheumatoid arthritis. 3. Psoriasis. 4. Noninsulin dependent diabetes. CONSULTATION: Dr. Elias Lang Briefly, Mr. Patel is a very nice 67-year-old gentleman, who has a history of psoriasis as well as RA. He was diagnosed with psoriasis approximately 3 months prior to his admission with numerous les ions on his legs and arms. He changed from Humira to Simponi after the development of psoriasis, but this has not improved. He was treated with vancomycin during his stay with improvement. He will be discharged home on amoxicillin and further follow up with Dr. Lang in the outpatient setting. HOSPITAL COURSE: 1. Right lower extremity cellulitis, much improved. Further follow up with Dr. Lang in the outpat ient setting. 2. RA. This was diagnosed about 30 years ago. 3. Psoriasis. This is quite significant. The biologics have not helped this. 4. Noninsulin dependent diabetes, on oral agents. These have been resumed. DISCHARGE CONDITION: Stable. Blood pressure is 149/87, heart rate of 91, respiratory rate of 18, O2 sats on room air 92%, temperature 36.6 Celsius. MEDICATIONS AT DISCHARGE: Please see the EMR. DISCHARGE INSTRUCTIONS: 1. Follow up with Dr. Lang as scheduled. 2. If he develops worsening redness, swelling, fevers, chills, to return to the ER. /[id number]/MODL
== END 2018-03-22 10:25 | disposition home or self-care (01) ==
LOC: F3N 13:31
PROVIDERS: ADMIT Student in an Organized Health Care Education/Training Program; ATTEND Family Medicine
DX: L03.115 Cellulitis of right lower limb (principal); L40.9 Psoriasis, unspecified; M06.9 Rheumatoid arthritis, unspecified; E86.9 Volume depletion, unspecified; E11.9 Type 2 diabetes mellitus without complications; J45.909 Unspecified asthma, uncomplicated; F17.200 Nicotine dependence, unspecified, uncomplicated; Z79.84 Long term (current) use of oral hypoglycemic drugs; Z92.25 Personal history of immunosuppression therapy; Z96.643 Presence of artificial hip joint, bilateral
CPT/HCPCS: 96361; 96365; 96366; 96372; 99285; G0378; J1650; J3370